=== PATIENT | female | born 1940 | race African-American/Black ===

== ENCOUNTER 2020-09-03 08:34 | Emergency (ER) | payer OTHER ==
[~2020-09-03] VITALS: Ht 157.5 cm; Wt 77.3 kg
[2020-09-03 08:42] VITALS: BP 0/0
[2020-09-03] MEDS ORDERED: EPINEPHrine 1:10,000 [1 MG/10 ML] SYRINGE ONE (17:00)
== END 2020-09-03 10:59 | disposition expired ==
LOC: EMS 08:34
DX: I46.9 Cardiac arrest, cause unspecified (principal); I50.9 Heart failure, unspecified; F17.200 Nicotine dependence, unspecified, uncomplicated; Z20.828 Contact with and (suspected) exposure to other viral communicable diseases
CPT/HCPCS: 31500; 92950; 99285; J0171; U0003; 99291